=== PATIENT | female | born 1970 | race Caucasian/White ===

== ENCOUNTER → 2016-10-20 | Outpatient (CLI) | payer OTHER | LOC: LAB 11:31 | DX: Z02.1 Encounter for pre-employment examination (principal) | CPT/HCPCS: 86706; 86735; 86762; 86765; 86787 ==

== ENCOUNTER → 2020-06-30 | Outpatient (CLI) | payer BC ==
[~2020-06-30] MED LIST: ALLERGY RELIEF10 M3 PO; AMITRIPTYLINE H25 MG PO; ASPIRIN EC81 MG PO; ATORVASTATIN CA20 MG PO; B-COMPLEX PLUS1 EAC1 PO; BUPROPION HCL100 MG PO; COLACE 100MG C100 MG PO; CYMBALTA 20 MG20 MG PO; CYTOTEC200 MCG PO; DESYREL 50 MG T50 MG PO; DULOXETINE HCL60 MG PO; FISH OIL 1,0001 EACH PO; HYDROCHLOROTHIA25 MG PO; HYDROCODON-ACE1 EAC4 PO; IBUPROFEN600 MG PO; ISOSORBIDE MONO30 MG PO; METOPROLOL SUCC25 MG PO; MULTI-VITAMIN1 EACH PO; NORCO 5-325 TA1 EACH PO; NORCO 7.5-3251 EACH PO; PRILOSEC OTC20 MG PO; PROVERA10 MG PO; ULTRAM50 MG PO; VOLTAREN100 GM TOP; WELLBUTRIN 75 M75 MG PO; ZANAFLEX 4 MG TA4 MG PO
[2020-06-30 19:31] LABS: HEMOGLOBIN 13.7 gm/dl (12.3-15.3); RED BLOOD COUNT 4.73 M/UL (4.00-5.10)
[2020-06-30 19:53] LABS: BUN/CREATININE RATIO 24 (0-10)
== END ==
LOC: LAB 19:08
PROVIDERS: Nurse Practitioner Psychiatric/Mental Health
DX: I10 Essential (primary) hypertension (principal); R53.83 Other fatigue
CPT/HCPCS: 80053; 80061; 83036; 84443; 85025

== ENCOUNTER → 2020-07-04 | Outpatient (CLI) | payer BC ==
[2020-07-04 16:30] LABS: BUN/CREATININE RATIO 17 (0-10)
== END ==
LOC: LAB 13:16
PROVIDERS: Family Medicine
DX: R53.83 Other fatigue (principal)
CPT/HCPCS: 80053; 82570; 82672; 83735; 83880; 84156; 87086

== ENCOUNTER 2020-07-18 06:22 | Observation (INO) | payer BC ==
[~2020-07-18] VITALS: Ht 154.9 cm; Wt 102.1 kg
[~2020-07-18 06:22] MED LIST changes: -AMITRIPTYLINE H25 MG PO; -ASPIRIN EC81 MG PO; -ATORVASTATIN CA20 MG PO; -B-COMPLEX PLUS1 EAC1 PO; -BUPROPION HCL100 MG PO; -DULOXETINE HCL60 MG PO; -FISH OIL 1,0001 EACH PO; -HYDROCHLOROTHIA25 MG PO; -HYDROCODON-ACE1 EAC4 PO; -ISOSORBIDE MONO30 MG PO; -MULTI-VITAMIN1 EACH PO; -PRILOSEC OTC20 MG PO; -VOLTAREN100 GM TOP; -ZANAFLEX 4 MG TA4 MG PO
[2020-07-18 07:20] LABS: RED BLOOD COUNT 5.22 M/UL (4.00-5.10); WHITE BLOOD COUNT 8.3 K/UL (4.5-11.0)
[2020-07-18 07:49] LABS: BUN/CREATININE RATIO 19 (0-10)
[2020-07-18] MEDS ORDERED: AMITRIPTYLINE H25 MG PO (10:13)
[2020-07-18] MEDS ORDERED: DULOXETINE HCL60 MG PO (10:13)
[2020-07-18] MEDS ORDERED: HYDROCODON-ACE1 EAC4 PO (10:14)
[2020-07-18] MEDS ORDERED: HYDROCHLOROTHIA25 MG PO (10:14)
[2020-07-18] MEDS ORDERED: ZANAFLEX 4 MG TA4 MG PO (10:15)
[2020-07-18] MEDS ORDERED: PRILOSEC OTC20 MG PO (10:15)
[2020-07-18] MEDS ORDERED: MULTI-VITAMIN1 EACH PO (10:16)
[2020-07-18] MEDS ORDERED: FISH OIL 1,0001 EACH PO (10:16)
[2020-07-18] MEDS ORDERED: B-COMPLEX PLUS1 EAC1 PO (10:17)
[2020-07-18] MEDS ORDERED: VOLTAREN100 GM TOP (10:20)
[2020-07-18] MEDS ORDERED: BUPROPION HCL100 MG PO (10:26)
[2020-07-19 02:25] LABS: HEMOGLOBIN 13.7 gm/dl (12.3-15.3); RED BLOOD COUNT 4.83 M/UL (4.00-5.10); WHITE BLOOD COUNT 8.2 K/UL (4.5-11.0)
[2020-07-19 02:44] LABS: BUN/CREATININE RATIO 16 (0-10)
[2020-07-20] MEDS ORDERED: ASPIRIN EC81 MG PO (11:26)
[2020-07-20] MEDS ORDERED: ATORVASTATIN CA20 MG PO (11:26)
[2020-07-20] MEDS ORDERED: ISOSORBIDE MONO30 MG PO (11:26)
[2020-07-21 09:26] LABS: HEMOGLOBIN 13.8 gm/dl (12.3-15.3); RED BLOOD COUNT 4.97 M/UL (4.00-5.10); WHITE BLOOD COUNT 8.4 K/UL (4.5-11.0)
[2020-07-21 09:46] LABS: BUN/CREATININE RATIO 15 (0-10)
== END 2020-07-22 13:35 | disposition home or self-care (01) ==
LOC: ER1 06:22 → CDU 09:26 → PROG CARE 09:26
PROVIDERS: Emergency Medicine; Internal Medicine; Physician Assistant; ADMIT Internal Medicine
PROC: 4A023N7 Measurement of Cardiac Sampling and Pressure, Left Heart, Percutaneous Approach (ICD-10-PCS; principal; 2020-07-21)
PROC: B2111ZZ Fluoroscopy of Multiple Coronary Arteries using Low Osmolar Contrast (ICD-10-PCS; 2020-07-21)
PROC: B2151ZZ Fluoroscopy of Left Heart using Low Osmolar Contrast (ICD-10-PCS; 2020-07-21)
DX: R07.89 Other chest pain (principal); E87.6 Hypokalemia; E86.0 Dehydration; I10 Essential (primary) hypertension; J98.11 Atelectasis; E11.9 Type 2 diabetes mellitus without complications; E66.01 Morbid (severe) obesity due to excess calories; Z68.41 Body mass index [BMI] 40.0-44.9, adult; Z91.81 History of falling; Z98.84 Bariatric surgery status; Z88.0 Allergy status to penicillin; Z86.718 Personal history of other venous thrombosis and embolism; Z87.820 Personal history of traumatic brain injury; Z86.711 Personal history of pulmonary embolism; Z95.828 Presence of other vascular implants and grafts; Z79.891 Long term (current) use of opiate analgesic; Z79.899 Other long term (current) drug therapy; Z20.822 Contact with and (suspected) exposure to COVID-19
CPT/HCPCS: ECHO; 36415; 71045; 78452; 80048; 80053; 82550; 82553; 82962; 83874; 83880; 84132; 84484; 84703; 85025; 85379; 93005; 93017; 93306; 93970; 93971; 94664; 96372; 96374; 96375; 96376; 99152; 99153; 99285; A9502; C1760; C1769; G0378; J1644; J2250; J2270; J2405; J2550; J2785; J3010; J7030; Q9967; U0002

== ENCOUNTER → 2020-08-21 | Outpatient (CLI) | payer BC ==
[~2020-08-21] MED LIST changes: +AMITRIPTYLINE H25 MG PO; +ASPIRIN EC81 MG PO; +ATORVASTATIN CA20 MG PO; +B-COMPLEX PLUS1 EAC1 PO; +BUPROPION HCL100 MG PO; +DULOXETINE HCL60 MG PO; +FISH OIL 1,0001 EACH PO; +HYDROCHLOROTHIA25 MG PO; +HYDROCODON-ACE1 EAC4 PO; +ISOSORBIDE MONO30 MG PO; +MULTI-VITAMIN1 EACH PO; +PRILOSEC OTC20 MG PO; +VOLTAREN100 GM TOP; +ZANAFLEX 4 MG TA4 MG PO
== END ==
LOC: SLEEP 14:44
DX: R06.02 Shortness of breath (principal); R29.818 Other symptoms and signs involving the nervous system
CPT/HCPCS: 95810

== ENCOUNTER → 2020-10-18 | Outpatient (CLI) | payer BC ==
[2020-10-18 08:15] LABS: HEMOGLOBIN 12.9 gm/dl (12.3-15.3); RED BLOOD COUNT 4.88 M/UL (4.00-5.10); WHITE BLOOD COUNT 8.7 K/UL (4.5-11.0)
[2020-10-18 08:21] LABS: BUN/CREATININE RATIO 11 (0-10)
== END ==
LOC: LAB 07:08
DX: R73.09 Other abnormal glucose (principal); R53.83 Other fatigue
CPT/HCPCS: 36415; 80053; 83036; 84439; 84443; 85025

== ENCOUNTER → 2021-04-02 | Outpatient (CLI) | payer OTHER | LOC: EROP 06:24 → EDSTATUS 08:39 | DX: Z20.822 Contact with and (suspected) exposure to COVID-19 (principal) | CPT/HCPCS: U0002 ==

== ENCOUNTER 2021-05-28 18:38 | Emergency (ER) | payer OTHER, BC ==
[2021-05-28] MEDS ORDERED: CYCLOBENZAPRINE10 MG PO (21:56)
[2021-05-28] MEDS ORDERED: MOBIC15 MG PO (21:56)
== END 2021-05-28 23:00 | disposition home or self-care (01) ==
LOC: ER1 18:38
DX: S09.90XA Unspecified injury of head, initial encounter (principal); S16.1XXA Strain of muscle, fascia and tendon at neck level, initial encounter; S39.012A Strain of muscle, fascia and tendon of lower back, initial encounter; S29.012A Strain of muscle and tendon of back wall of thorax, initial encounter; I10 Essential (primary) hypertension; V49.50XA Passenger injured in collision with unspecified motor vehicles in traffic accident, initial encounter; Y92.410 Unspecified street and highway as the place of occurrence of the external cause
CPT/HCPCS: 70450; 71045; 72072; 72100; 72125; 73030; 73090; 73130; 73502; 73552; 73562; 99284

== ENCOUNTER 2021-06-21 23:50 | Emergency (ER) | payer BC ==
[~2021-06-21 23:50] MED LIST changes: +CYCLOBENZAPRINE10 MG PO; +MOBIC15 MG PO
[2021-06-22 00:24] LABS: HEMOGLOBIN 13.1 gm/dl (12.3-15.3); RED BLOOD COUNT 4.77 M/UL (4.00-5.10); WHITE BLOOD COUNT 6.7 K/UL (4.5-11.0)
[2021-06-22 00:37] LABS: BUN/CREATININE RATIO 18 (0-10)
== END 2021-06-22 03:17 | disposition home or self-care (01) ==
LOC: ER1 23:50
PROVIDERS: Student in an Organized Health Care Education/Training Program
DX: R10.31 Right lower quadrant pain (principal); R10.813 Right lower quadrant abdominal tenderness; I10 Essential (primary) hypertension; Z88.0 Allergy status to penicillin
CPT/HCPCS: 80053; 81001; 83690; 85025; 96374; 99284; J2270; J2405; Q9967

== ENCOUNTER 2021-06-26 20:32 | Emergency (ER) | payer BC ==
[2021-06-26 22:21] LABS: HEMOGLOBIN 12.8 gm/dl (12.3-15.3); RED BLOOD COUNT 4.6 M/UL (4.00-5.10); WHITE BLOOD COUNT 8.3 K/UL (4.5-11.0)
[2021-06-26 23:40] LABS: BUN/CREATININE RATIO 17 (0-10)
[2021-06-27] MEDS ORDERED: ZOFRAN ODT 4 MG4 MG PO (00:03)
[2021-06-27] MEDS ORDERED: BENTYL 20MG TAB20 MG PO (00:03)
== END 2021-06-27 00:15 | disposition home or self-care (01) ==
LOC: ER1 20:32
PROVIDERS: Physician Assistant
DX: R10.31 Right lower quadrant pain (principal); I10 Essential (primary) hypertension; Z88.0 Allergy status to penicillin; R10.813 Right lower quadrant abdominal tenderness
CPT/HCPCS: 80053; 81001; 85025; 99284; Q9967